=== PATIENT | female | born 1985 | race Caucasian/White ===

== ENCOUNTER 2018-11-05 15:39 | Emergency (ER) | payer OTHER, BC ==
[2018-11-05] MEDS ORDERED: Sodium Chloride 0.9% 1,000 ML IV ONE (15:58)
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
[2018-11-05] MEDS ORDERED: Sodium Chloride 0.9% 1,000 ML ONE (16:19)
[2018-11-05 16:22] LABS: BASO % 0.4 % (0.0-2.0); EOS # 0.1 K/uL (0.0-0.7); EOS % 0.8 % (0.0-4.0); HEMOGLOBIN 12.2 g/dL (11.0-16.0); LYMPH # 1.6 K/uL (1.0-4.3); LYMPH % 13.8 % (20.0-40.0); MEAN CELL VOLUME 83.3 fL (81.0-99.0); MEAN CORPUSCULAR HEMOGLOBIN 27.5 pg (27.0-31.0); MEAN PLATELET VOLUME 8.6 fL (7.2-11.7); NEUT # 8.8 K/uL (1.8-7.0); RBC 4.42 Mil/uL (3.80-5.20); WHITE BLOOD COUNT 11.5 K/uL (4.8-10.8)
[2018-11-05 16:34] LABS: ALB/GLOB RATIO 1.2 (1.0-2.1); ALBUMIN 4.1 g/dL (3.5-5.0); ALT/SGPT 21 U/L (9-52); AST/SGOT 18 U/L (14-36); BLOOD UREA NITROGEN 8 mg/dL (7-17); CALCIUM 8.1 mg/dl (8.6-10.4); GFR NON-AFRICAN AMERICAN > 60
[2018-11-05 16:46] LABS: SQUAMOUS EPITHIAL 2 /hpf (0-5); URINE BACTERIA RARE (<OCC); URINE BILIRUBIN NEGATIVE (NEGATIVE); URINE BLOOD 1+ (NEGATIVE); URINE CLARITY Hazy (Clear); URINE COLOR Yellow (YELLOW); URINE GLUCOSE (UA) NORMAL (Normal); URINE LEUKOCYTE ESTERASE 3+ Leu/uL (Negative); URINE PROTEIN NEGATIVE (NEGATIVE); URINE UROBILINOGEN NORMAL mg/dL (0.2-1.0)
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
[2018-11-05 18:59] VITALS: BP 96/62; PULSE 79; RESP 20; TEMP 98.2
[2018-11-05 19:14] VITALS: O2SAT 95
== END 2018-11-05 19:28 | disposition home or self-care (01) ==
LOC: C.ER 15:39
DX: O9A.212 Injury, poisoning and certain other consequences of external causes complicating pregnancy, second trimester (principal); Z3A.17 17 weeks gestation of pregnancy
CPT/HCPCS: 76815; 80053; 81001; 84702; 85025; 86850; 86900; 96360; 99285; J7030